=== PATIENT | male | born 1970 | race African-American/Black ===

== ENCOUNTER 2017-09-18 15:29 | Emergency (ER) | payer MEDICARE, MEDICAID ==
--- NOTE | 2017-09-18 16:44 | ER Document Report ---
ED Medical Screen (RME) - General Chief Complaint: Eye Problem Stated Complaint: EYE PRESSURE Time Seen by Provider: 09/18/17 16:39 Notes: 47-year-old male past medical history end-stage renal disease with complaints of right eye abnormal vision since yesterday. He states that yesterday evening , he started to get some floaters in his eye which then resolved right before his nap. When he woke up yesterday at 10 PM from his nap, his vision was severely blurred and he had eye pressure in and behind the right eye. When asked if he has ever had a glaucoma attack, he says no but then upon further questioning he states that he has had one prior episode which required pillows to decrease elevated pressure in his eye. Today, he was sent over from dialysis for evaluation. He does tell me that he recently ran out of his Travatan glaucoma drops for approximately 2 weeks but then was able to obtain a refill and start taking it again. EXAM Mid dilated right pupil Do not appreciate a hazy cornea TRAVEL OUTSIDE OF THE [place] IN LAST 30 DAYS: No - Related Data Allergies/Adverse Reactions: BLOOD THINNERS Allergy (Uncoded 09/18/17 15:30) Home Medications: Current Home Medications Amlodipine Besylate 10 mg PO DAILY 09/18/17 [History] Carvedilol 25 mg PO DAILY 09/18/17 [History] Furosemide [Lasix] 40 mg PO DAILY 09/18/17 [History] Hydrochlorothiazide 12.5 mg PO DAILY 09/18/17 [History] Insulin Detemir [Levemir] 100 unit SQ DAILY 09/18/17 [History] Levothyroxine Sodium 50 mcg PO DAILY 09/18/17 [History] Pravastatin Sodium 10 mg PO DAILY 09/18/17 [History] Travoprost (Benzalkonium) [Travatan 0.004% Eye Drop] 5 ml OP DAILY 09/18/17 [ History] Past Medical History - Social History Chew tobacco use (# tins/day): No Frequency of alcohol use: Occasional Drug Abuse: None - Past Medical History Cardiac Medical History: Reports: Hx Hypercholesterolemia, Hx Hypertension Endocrine Medical History: Reports: Hx Diabetes Mellitus Type 2 Renal/ Medical History: Reports: Hx End Stage Renal Disease. Denies: Hx Peritoneal Dialysis Past Surgical History: Reports: Hx Orthopedic Surgery - fifth digit toe amputation to right foot Physical Exam - Vital signs Vitals: Temp Pulse Resp BP Pulse Ox 98.6 F 64 20 146/81 H 100 09/18/17 15:47 09/18/17 15:47 09/18/17 15:47 09/18/17 15:47 09/18/17 15:47 Course - Vital Signs Vital signs: Temp Pulse Resp BP Pulse Ox 98.6 F 64 20 146/81 H 100 09/18/17 15:47 09/18/17 15:47 09/18/17 15:47 09/18/17 15:47 09/18/17 15:47
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
[2017-09-18] MEDS ORDERED: ACETAMINOPHEN 325 MG TABLET ONE (18:55)
[2017-09-18 18:57] VITALS: BP 165/76
== END 2017-09-18 18:57 | disposition home or self-care (01) ==
LOC: ER 15:29
DX: H54.61 Unqualified visual loss, right eye, normal vision left eye (principal); H57.11 Ocular pain, right eye; Z79.899 Other long term (current) drug therapy
CPT/HCPCS: 99283

== ENCOUNTER 2019-10-29 15:12 | Emergency (ER) | payer MEDICARE, BC ==
--- NOTE | 2019-10-29 15:36 | ER Document Report ---
ED Medical Screen (RME) - General Chief Complaint: Dialysis Catheter Problem Stated Complaint: LEFT ARM PAIN Time Seen by Provider: 10/29/19 15:31 Primary Care Provider: AMANDA RIVERA MD [Primary Care Provider] - Follow up as needed TRAVEL OUTSIDE OF THE [place] IN LAST 30 DAYS: No - HPI Notes: 10/29/19 15:34 Patient is a 49-year-old male with history of end-stage renal disease and on dialysis every Thursday/Thursday/Thursday (performed complete session with dialysis yesterday) presents complaining of continued bleeding from his fistula site of his right arm. They have not been able to stop the bleeding. He is not on any blood thinners. He is not having any chest pain or shortness of breath. No fever. I have treated and performed a rapid initial assessment of this patient. A comprehensive ED assessment and evaluation of the patient, analysis of test results and completion of medical decision making process will be conducted by additional ED providers. PHYSICAL EXAMINATION: GENERAL: Well-appearing, well-nourished and in no acute distress. A&Ox4. Answers questions appropriately. Right arm: Palpable thrill and bruit noted. There is noted active bleeding from where the needle was withdrawn yesterday. Dressing was replaced in triage. - Related Data Allergies/Adverse Reactions: BLOOD THINNERS Allergy (Uncoded 09/18/17 15:30) Past Medical History - Past Medical History Cardiac Medical History: Reports: Hx Hypercholesterolemia, Hx Hypertension Endocrine Medical History: Reports: Hx Diabetes Mellitus Type 2 Renal/ Medical History: Reports: Hx End Stage Renal Disease. Denies: Hx Peritoneal Dialysis Past Surgical History: Reports: Hx Orthopedic Surgery - fifth digit toe amputation to right foot Doctor's Discharge - Discharge Referrals: AMANDA RIVERA MD [Primary Care Provider] - Follow up as needed
[2019-10-29 16:16] LABS: PROTHROMBIN TIME 16.3 SEC (11.4-15.4)
[2019-10-29 16:17] LABS: PARTIAL THROMBOPLASTIN TIME 35.7 SEC (23.5-35.8)
[2019-10-29 16:28] LABS: ALBUMIN 4.6 g/dL (3.5-5.0); ALKALINE PHOSPHATASE 157 U/L (38-126); ANION GAP 13 (5-19); ASPARTATE AMINO TRANSFERASE 21 U/L (17-59); BILIRUBIN,DIRECT 0.9 mg/dL (0.0-0.4); BILIRUBIN,TOTAL 1.1 mg/dL (0.2-1.3); BLOOD UREA NITROGEN 39 mg/dL (7-20); CALCIUM 9.7 mg/dL (8.4-10.2); CARBON DIOXIDE 31 mmol/L (22-30); CHLORIDE 101 mmol/L (98-107); GLUCOSE 106 mg/dL (75-110); POTASSIUM 4.2 mmol/L (3.6-5.0); TOTAL PROTEIN 8.6 g/dL (6.3-8.2)
[2019-10-29 16:29] LABS: ABSOLUTE BASOPHILS # (AUTO) 0.1 10^3/uL (0.0-0.2); ABSOLUTE EOSINOPHILS # (AUTO) 0.2 10^3/uL (0.0-0.6); ABSOLUTE LYMPHOCYTES (AUTO) 0.7 10^3/uL (0.5-4.7); ABSOLUTE MONOCYTES (AUTO) 0.7 10^3/uL (0.1-1.4); BASOPHILS % (AUTO) 1.4 % (0-2); EOSINOPHILS % (AUTO) 4.1 % (0-6); HEMATOCRIT 32.8 % (37.9-51.0); HEMOGLOBIN 10.6 g/dL (13.5-17.0); LYMPHOCYTES % (AUTO) 15.2 % (13-45); MEAN CORPUSCULAR HGB CONC 32.2 g/dL (32.0-36.0); MEAN CORPUSCULAR VOLUME 90 fl (80-97); MONOCYTES % (AUTO) 14.1 % (3-13); RED BLOOD COUNT 3.65 10^6/uL (4.35-5.55); RED CELL DISTRIBUTION WIDTH 19.3 % (11.5-14.0); SEGMENTED NEUTROPHILS % (AUTO) 65.2 % (42-78); TOTAL CELLS COUNTED % (AUTO) 100 %; WHITE BLOOD COUNT 4.6 10^3/uL (4.0-10.5)
[2019-10-29 16:51] LABS: PLATELET COUNT 85 10^3/uL (150-450)
[2019-10-29] MEDS ORDERED: TRANEXAMIC ACID INJ/PF 1,000 MG/10 ML SDV TOP ONE (18:16)
--- NOTE | 2019-10-29 18:56 | ER Document Report ---
ED General - General Chief Complaint: Dialysis Catheter Problem Stated Complaint: LEFT ARM PAIN Time Seen by Provider: 10/29/19 15:31 Primary Care Provider: AMANDA RIVERA MD [ACTIVE STAFF] - Follow up as needed Notes: 49-year-old male presents emergency department complaining that has been bleeding from his dialysis fistula in his right arm since leaving dialysis yesterday. States that he wrapped it up overnight and thought that the dressing would be enough pressure but when he woke up this morning his shirt was bloody. Called dialysis and was told there was nothing they could do so he came to the emergency department. Denies taking any blood thinners. Denies any wooziness or lightheadedness. TRAVEL OUTSIDE OF THE [place] IN LAST 30 DAYS: No - Related Data Allergies/Adverse Reactions: BLOOD THINNERS Allergy (Uncoded 09/18/17 15:30) Past Medical History - General Information source: Patient, Relative - Social History Smoking Status: Current Every Day Smoker Chew tobacco use (# tins/day): No Frequency of alcohol use: None Drug Abuse: None Family History: Reviewed & Not Pertinent Patient has suicidal ideation: No Patient has homicidal ideation: No - Past Medical History Cardiac Medical History: Reports: Hx Hypercholesterolemia, Hx Hypertension Endocrine Medical History: Reports: Hx Diabetes Mellitus Type 2 Renal/ Medical History: Reports: Hx End Stage Renal Disease. Denies: Hx Peritoneal Dialysis Past Surgical History: Reports: Hx Orthopedic Surgery - fifth digit toe amputation to right foot Review of Systems - Review of Systems Constitutional: No symptoms reported Cardiovascular: No symptoms reported Respiratory: No symptoms reported Gastrointestinal: No symptoms reported Skin: See HPI - Bleeding dialysis fistula Hematologic/Lymphatic: See HPI - Bleeding dialysis fistula Physical Exam - Vital signs Vitals: Temp Pulse Resp BP Pulse Ox 98.1 F 61 16 172/78 H 95 10/29/19 15:36 10/29/19 15:36 10/29/19 15:36 10/29/19 15:36 10/29/19 15:36 Interpretation: Hypertensive - Notes Notes: GENERAL: Alert, interacts well. No acute distress. HEAD: Normocephalic, atraumatic EYES: Pupils equal, round and reactive to light, extraocular movements intact. ENT: Oral mucosa moist, tongue midline. NECK: Full range of motion, supple, trachea midline. EXTREMITIES: Moves all 4 extremities spontaneously, right upper extremity has a very slow trickle of blood coming from a puncture wound in the dialysis fistula, strong thrill, no aneurysm noted, bleeding is not brisk. No cyanosis. NEUROLOGICAL: Alert and oriented x3, normal speech. . PSYCH: Normal mood, normal affect. SKIN: Warm, Dry. Course - Re-evaluation Re-evalutation: 10/29/19 21:31 CBC shows chronic anemia and chronically low platelets, INR chronically prolonged, chemistries reveal chronic renal failure, nothing actionable. Direct pressure was held with TXA soaked gauze, direct pressure was continued and after approximately an hour of direct pressure with TXA soaked gauze the bleeding stopped. He was observed for another 30 minutes, no further bleeding despite using that arm with full range of motion. Patient will be discharged to home. - Vital Signs Vital signs: Temp Pulse Resp BP Pulse Ox 98.1 F 61 16 172/78 H 95 10/29/19 15:36 10/29/19 15:36 10/29/19 15:36 10/29/19 15:36 10/29/19 15:36 - Laboratory Result Diagrams: 10/29/19 15:55 10/29/19 15:55 Laboratory results interpreted by me: 10/29/19 10/29/19 10/29/19 15:55 15:55 15:55 RBC 3.65 L Hgb 10.6 L Hct 32.8 L RDW 19.3 H Plt Count 85 L Mellette % (Auto) 14.1 H PT 16.3 H Carbon Dioxide 31 H BUN 39 H Creatinine 7.02 H Est GFR ( Amer) 10 L Est GFR (MDRD) Non-Af 8 L Direct Bilirubin 0.9 H Alkaline Phosphatase 157 H Total Protein 8.6 H Discharge - Discharge Clinical Impression: Bleeding dialysis fistula Condition: Stable Disposition: HOME, SELF-CARE Additional Instructions: If you start bleeding again please hold pressure as hard as you can for 30 minutes, when you let go if it continues to bleed please return to the emergency department. If the bleeding is more than just a slow trickle like it was this evening please hold pressure and immediately call 911 instead of waiting 30 minutes. Referrals: AMANDA RIVERA MD [ACTIVE STAFF] - Follow up as needed
[2019-10-29 21:47] VITALS: BP 172/70
== END 2019-10-29 21:30 | disposition home or self-care (01) ==
LOC: ER 15:12
DX: T82.838A Hemorrhage due to vascular prosthetic devices, implants and grafts, initial encounter (principal); Y84.1 Kidney dialysis as the cause of abnormal reaction of the patient, or of later complication, without mention of misadventure at the time of the procedure; I12.0 Hypertensive chronic kidney disease with stage 5 chronic kidney disease or end stage renal disease; E11.22 Type 2 diabetes mellitus with diabetic chronic kidney disease; N18.6 End stage renal disease; D63.1 Anemia in chronic kidney disease; Z99.2 Dependence on renal dialysis; F17.200 Nicotine dependence, unspecified, uncomplicated; Z88.8 Allergy status to other drugs, medicaments and biological substances
CPT/HCPCS: 99284; 36415; 85025; 85610; 85730; 80053; J3490

== ENCOUNTER 2020-08-20 14:28 | Inpatient (IN) | payer MEDICARE, BC ==
[2020-08-20 15:10] LABS: HEMATOCRIT 34.2 % (37.9-51.0); HEMOGLOBIN 11.2 g/dL (13.5-17.0); MEAN CORPUSCULAR HEMOGLOBIN 29.1 pg (27.0-33.4); MEAN CORPUSCULAR HGB CONC 32.7 g/dL (32.0-36.0); MEAN CORPUSCULAR VOLUME 89 fl (80-97); RED BLOOD COUNT 3.86 10^6/uL (4.35-5.55); RED CELL DISTRIBUTION WIDTH 14.9 % (11.5-14.0); WHITE BLOOD COUNT 4.9 10^3/uL (4.0-10.5)
[2020-08-20 15:35] LABS: ABSOLUTE LYMPHOCYTES# (MANUAL) 0.4 10^3/uL (0.5-4.7); BAND NEUTROPHILS % (MANUAL) 10 % (3-5); BASOPHILS % (MANUAL) 0 % (0-2); EOSINOPHILS % (MANUAL) 0 % (0-6); LYMPHOCYTES % (MANUAL) 9 % (13-45); METAMYELOCYTES % (MANUAL) 1 % (0-1); MONOCYTES % (MANUAL) 1 % (3-13); SEGMENTED NEUTROPHILS % (MAN) 79 % (42-78); TOTAL CELLS COUNTED 100; VENOUS BLOOD BASE EXCESS -8.3 mmol/L; VENOUS BLOOD HCO3 18.2 mmol/L (20-32); VENOUS BLOOD PCO2 41.1 mmHg (35-63); VENOUS BLOOD PH 7.26 (7.30-7.42)
[2020-08-20 15:36] LABS: PLATELET COMMENT DECREASED; RBC MORPHOLOGY COMMENT NORMO-CYTIC/CHROMIC
[2020-08-20 15:37] LABS: PLATELET COUNT 54 10^3/uL (150-450)
[2020-08-20 15:39] LABS: ALBUMIN 3.5 g/dL (3.5-5.0); ALKALINE PHOSPHATASE 87 U/L (38-126); ASPARTATE AMINO TRANSFERASE 42 U/L (17-59); BILIRUBIN,DIRECT 0.9 mg/dL (0.0-0.4); BILIRUBIN,TOTAL 1.1 mg/dL (0.2-1.3); BLOOD UREA NITROGEN 67 mg/dL (7-20); CALCIUM 7.9 mg/dL (8.4-10.2); GLUCOSE 168 mg/dL (75-110); POTASSIUM 4.7 mmol/L (3.6-5.0); TOTAL PROTEIN 6.8 g/dL (6.3-8.2)
--- NOTE | 2020-08-20 15:51 | RADIOLOGY REPORT (SQ) ---
EXAM DESCRIPTION: CHEST SINGLE VIEW IMAGES COMPLETED DATE/TIME: 08/20/2020 3:38 pm REASON FOR STUDY: difficulty breathing COMPARISON: None. EXAM PARAMETERS: NUMBER OF VIEWS: One view. TECHNIQUE: An AP view of the chest was obtained. RADIATION DOSE: NA LIMITATIONS: None. FINDINGS: LUNGS AND PLEURA: Bilateral patchy consolidative opacities in a peripheral distribution. The right lateral costophrenic sulcus is blunted. There is no pneumothorax. MEDIASTINUM AND HILAR STRUCTURES: No mediastinal or hilar contour abnormality. HEART AND VASCULAR STRUCTURES: Cardiac silhouette is enlarged. BONES: No acute findings. HARDWARE: Endovascular stents that project over the right clavicle. OTHER: No other finding. IMPRESSION: Patchy bilateral consolidative opacities in a peribronchial distribution. Differential considerations include pulmonary edema and multifocal pneumonia (including atypical infections such a s COVID-19). TECHNICAL DOCUMENTATION: JOB ID: [id number] 2010 [employer]- All Rights Reserved Reading location - IP/workstation name: [email or web address]
[2020-08-20 16:09] LABS: ANION GAP 20 (5-19); CARBON DIOXIDE 20 mmol/L (22-30); CHLORIDE 97 mmol/L (98-107)
[2020-08-20] MEDS ORDERED: AZITHROMYCIN INJ 500 MG VIAL IV ONE (16:19)
[2020-08-20] MEDS ORDERED: DEXAMETHASONE SOD PHOS INJ 10 MG/1 ML VIAL IV ONE (16:19)
[2020-08-20] MEDS ORDERED: FAMOTIDINE INJ/PF 20 MG/2 ML SDV IV ONE (16:19)
[2020-08-20] MEDS ORDERED: FUROSEMIDE INJ/PF 20 MG/2 ML SDV IV ONE (16:20)
--- NOTE | 2020-08-20 16:21 | ER Document Report ---
ED Respiratory Problem - General Chief Complaint: Breathing Difficulty Stated Complaint: DIFFICULTY BREATHING Time Seen by Provider: 08/20/20 16:16 Mode of Arrival: Medic Information source: Patient, Emergency Med Personnel Notes: 08/20/20 16:10 - ED Nursing Note by TIMMYNUNORAMIREZ Num: [id number] : 1970 Patient Age: 49 pt reposition self numerous times. pt taken off nrb and placed on o2 at 4 liters. o2 sat dropped to 87. pt placed back on nrb. Initialized on 08/20/20 16:10 - END OF NOTE MY NOTES 49-year-old male arrives with chief complaint of having shortness of breath with 67% sats on room air at home and then this increased to 95% per EMS by time of arrival. Patient was tested positive for COVID-19 around 6 days ago this is according to his and EMS. I spoke with Dr. Babb at 1705 and he advises calling Dr. Hernandez and this was done by 1717. She returned call by 1728 and advises check for dialysis potential. Nursing staff advises she is spoken with and he has positive dialysis patient. Patient is a insulin-dependent diabetic on Lasix levothyroxine Pollock Marissa Norvasc pravastatin. Also patient is a dialysis patient and is scheduled for tomorrow. Dr. Chery was called and he advises putting the patient in hospital and he will dialyze him tomorrow.Also Yumi advised HFNC TRAVEL OUTSIDE OF THE [place] IN LAST 30 DAYS: No - Related Data Allergies/Adverse Reactions: BLOOD THINNERS Allergy (Uncoded 08/20/20 14:47) Home Medications: sildenafil. amlodipine. carvedilol. hydralazine. dorzolamide Past Medical History - General Information source: Patient, Emergency Med Personnel - Social History Smoking Status: Former Smoker Cigarette use (# per day): No Chew tobacco use (# tins/day): No Smoking Education Provided: No Frequency of alcohol use: None Drug Abuse: None Lives with: Family Family History: Reviewed & Not Pertinent Patient has suicidal ideation: No Patient has homicidal ideation: No - Past Medical History Cardiac Medical History: Reports: Hx Hypercholesterolemia, Hx Hypertension Endocrine Medical History: Reports: Hx Diabetes Mellitus Type 2 Renal/ Medical History: Reports: Hx End Stage Renal Disease. Denies: Hx Peritoneal Dialysis Past Surgical History: Reports: Hx Orthopedic Surgery - fifth digit toe amputation to right foot Review of Systems - Review of Systems Constitutional: See HPI, Fever, Weakness, Recent illness EENT: Nose congestion, Throat pain Cardiovascular: See HPI, Orthopnea, Dyspnea, Lightheaded Respiratory: See HPI, Cough, Hurts to breathe, Short of breath Gastrointestinal: No symptoms reported Genitourinary: No symptoms reported Male Genitourinary: No symptoms reported Musculoskeletal: See HPI, Leg swelling Skin: No symptoms reported Hematologic/Lymphatic: No symptoms reported Neurological/Psychological: No symptoms reported -: Yes All other systems reviewed and negative Physical Exam - Vital signs Vitals: Temp 99.1 F 08/20/20 14:28 Interpretation: Hypoxic, Tachypneic - General General appearance: Anxious - HEENT Head: Normocephalic, Atraumatic Eyes: Normal Cornea: Other - Left is pale and appears to be blind Extraocular movements intact: Yes Pupils: PERRL Corrective lenses worn: No Sinus: Normal Nasal: Normal Mucous membranes: Dry Pharynx: Erythema Neck: Normal - Respiratory Respiratory status: Respiratory distress Chest status: Tender Breath sounds: Rales Chest palpation: Normal - Cardiovascular Rhythm: Regular Heart sounds: Normal auscultation Murmur: No - Abdominal Inspection: Morbidly Obese Distension: No distension Bowel sounds: Normal Tenderness: Nontender Organomegaly: No organomegaly - Rectal Prostate: Other - Deferred - Genitourinary Scrotum: Other - Deferred - Back Back: Normal - Extremities General upper extremity: Normal inspection General lower extremity: Edema - Neurological Neuro grossly intact: Yes Cognition: Normal Orientation: AAOx4 Crosby Coma Scale Eye Opening: Spontaneous Mariah Coma Scale Verbal: Oriented Mariah Coma Scale Motor: Obeys Commands Crosby Coma Scale Total: 15 Speech: Normal Motor strength normal: LUE, RUE, LLE, RLE Sensory: Normal - Psychological Associated symptoms: Anxious - Skin Skin Temperature: Warm Skin Moisture: Moist Course - Vital Signs Vital signs: Temp Pulse Resp BP Pulse Ox 99.1 F 34 H 107/60 96 08/20/20 14:28 08/20/20 16:07 08/20/20 16:07 08/20/20 16:07 - Laboratory Results Result Diagrams: 08/20/20 14:34 12/14/20 14:34 Laboratory Results Interpreted: 08/20/20 08/20/20 08/20/20 14:34 14:34 14:34 RBC 3.86 L Hgb 11.2 L Hct 34.2 L RDW 14.9 H Plt Count 54 L Seg Neuts % (Manual) 79 H Band Neutrophils % 10 H Lymphocytes % (Manual) 9 L Monocytes % (Manual) 1 L Abs Lymphs (Manual) 0.4 L Abs Monocytes (Manual) 0.0 L VBG pH 7.26 L VBG HCO3 18.2 L Sodium 136.9 L Chloride 97 L Carbon Dioxide 20 L Anion Gap 20 H BUN 67 H Creatinine 14.08 H Est GFR ( Amer) 5 L Est GFR (MDRD) Non-Af 4 L Glucose 168 H Lactic Acid Calcium 7.9 L Direct Bilirubin 0.9 H 08/20/20 14:34 RBC Hgb Hct RDW Plt Count Seg Neuts % (Manual) Band Neutrophils % Lymphocytes % (Manual) Monocytes % (Manual) Abs Lymphs (Manual) Abs Monocytes (Manual) VBG pH VBG HCO3 Sodium Chloride Carbon Dioxide Anion Gap BUN Creatinine Est GFR ( Amer) Est GFR (MDRD) Non-Af Glucose Lactic Acid 2.8 H Calcium Direct Bilirubin Critical Laboratory Results Reviewed: Yes Attending or Supervising Physician who Reviewed Labs: ROSELIA SANTA JR - Radiology Results Radiology Results Interpreted: 08/20/20 17:43 Dr. Pederson radiologist Critical Radiology Results Reviewed: Yes Attending or Supervising Physician who Reviewed Radiology: ROSELIA SANTA JR - EKG Interpretation by Ut EKG shows normal: Sinus rhythm Rate: Normal Rhythm: NSR - With sinus rhythm with JEFERSON consider biatrial abnormalities and left posterior fascicular block and borderline prolonged QT interval. Also repo larization abnormal and suggest ischemia inferior leads. This was read by myself as well as agreement with the EKG machine itself. No STEMI Discharge - Discharge Clinical Impression: COVID-19 virus detected, ESRD (end stage renal disease) on dialysis Pneumonia Qualifiers: Pneumonia type: due to unspecified organism Laterality: bilateral Lung location: unspecified part of lung Qualified Code(s): J18.9 - Pneumonia, unspecified organism Condition: Stable Disposition: ADMITTED INPATIENT Admitting Provider: David (Hospitalist) Unit Admitted: IMCU [facility]: [facility] will need [facility]; will attempt HF NC because of patient's noncompliance with facemask.
[2020-08-20] MEDS ORDERED: EPINEPHRINE INJ 1 MG/10 ML DISP.SYRIN ONE (17:18)
[2020-08-20] MEDS ORDERED: SODIUM BICARBONATE 8.4% INJ 50 MEQ/50 ML DISP.SYRIN ONE (17:18)
[2020-08-20] MEDS ORDERED: ATROPINE SULFATE INJ 1 MG/10 ML DISP.SYRIN IV ONE (17:18)
[2020-08-20] MEDS ORDERED: IPRATROPIUM/ALBUTEROL 0.5-2.5 MG/3 ML AMPUL NEB PRN (18:08)
[2020-08-20] MEDS ORDERED: ONDANSETRON HCL INJ/PF 4 MG/2 ML SDV IV PRN (18:12)
[2020-08-20] MEDS ORDERED: ACETAMINOPHEN 325 MG TABLET PO PRN (18:12)
[2020-08-20] MEDS ORDERED: NORMAL SALINE 250 ML IV PRN (18:15)
[2020-08-20 18:23] VITALS: BP 165/90
[2020-08-20] MEDS ORDERED: FUROSEMIDE INJ/PF 40 MG/4 ML SDV IV ONE (18:23)
[2020-08-20] MEDS ORDERED: DEXTROSE 50%-WATER 25 GM/50 ML DISP.SYRIN IV ONE (18:40)
[2020-08-20] MEDS ORDERED: INSULIN REG, HUMAN 100 UNIT/ML 3 ML VIAL (PYX) ONE (18:42)
--- NOTE | 2020-08-20 19:31 | Progress Note ---
Provider Note Provider Note: I was advised of CODE STATUS at approximately 183 by Noreen LU who went to find the patient had defecated on himself and was nonresponsive with decreased respirations decreased heart rate and was just ready to go upstairs according to Noreen. Dr. Hernandez was standing out of the room as multiple nursing staff juan t to the room and myself under secure PPE COVID-19 precautions. We use the same precautions leaving the room after code was finished. CPR was begun at 183 with pads applied and patient received multiple doses of epinephrine atropine 1 mg an amp of D50 and 5 units of insulin IV and he was charged for 360 J but the machine advised against any charge because he had a rhythm in PEA. No pulses were detected at any time on this patient's evaluation. Code was called at 185. I did speak at telephone #[phone] with Patti Delgadillo his at 1914 and I advised her of her 's . She took this rather poorly with large amounts of crying and disbelief that I heard over the phone. She asked to see her and staff were advised out front and Noreen was advised of this as well. She has been the nurse taking care of this patient all afternoon.
[2020-08-20] MEDS ORDERED: IVERMECTIN 3 MG TABLET PO ONE (20:00)
--- NOTE | 2020-08-20 21:59 | PDOC H&P ---
History of Present Illness Admission Date/PCP: 08/20/20 18:07 Patient complains of: Shortness of breath History of Present Illness: KHLOE CARDOSO is a 49 year old male, past medical history of ESRD on dialysis, hypertension, hyperlipidemia, diabetes who came in the ED today due to shortness of breath. History is limited because the patient is very short of breath. Stated that he tested positive for Covid 2 weeks prior when he started experiencing on and off fever, mild shortness of breath, cough. He continued to go to his dialysis appointment and was successfully dialyzed last Thursday. Today he became more short of breath and and EMS was called who noted saturation 67%. In the ED blood pressure was 100/56 heart rate of 72, respiratory rate of 40, O2 sat 89% on 15 L nonrebreather. Chest x-ray findings consistent with Covid pneumonia. He became confused and was not able to tolerate the BiPAP. He was given 1 dose of azithromycin. Hospitalist service was called for admission and management. I saw him at around 6:00 PM and he was very tachypneic. I tried to put him back on the BiPAP but he was unable to tolerate this. I advised ED physician to try a high flow nasal cannula. At around 6:35 PM he developed severe bradycardia eventually going into cardiac arrest. Dr. Albarado conducted ACLS however he did not survive and was pronounced . Dr. Albarado was kind enough to call his Patti to inform her of his passing. Past Medical History Cardiac Medical History: Reports: Coronary Artery Disease, Hyperlipidema, Hypertension EENT Medical History: Reports: None Neurological Medical History: Reports: None Endocrine Medical History: Reports: Diabetes Mellitus Type 2 Renal/ Medical History: Reports: End Stage Renal Disease - On dialysis Psychiatric Medical History: Reports: None Traumatic Medical History: Reports: None Hematology: Reports: Anemia Past Surgical History Past Surgical History: Reports: Orthopedic Surgery - fifth digit toe amputation to right foot Social History Lives with: Family Smoking Status: Former Smoker Electronic Cigarette use?: No - Advance Directive Resuscitation Status: Full Code Family History Family History: Reviewed & Not Pertinent Parental Family History Reviewed: Yes Children Family History Reviewed: Yes Sibling(s) Family History Reviewed.: Yes Medication/Allergy Home Medications: Amlodipine Besylate 10 mg PO QHS 09/18/17 Carvedilol 25 mg PO Q12 09/18/17 Insulin Detemir [Levemir] 100 unit SQ DAILYP PRN 09/18/17 Levothyroxine Sodium 50 mcg PO Q6AM 09/18/17 Dorzolamide HCl/Pf [Dorzolamide 2% Eye Drop] 1 drop OD Q8 08/20/20 Hydralazine HCl [Apresoline 50 mg Tablet] 50 mg PO Q8 08/20/20 Latanoprost [Xalatan 0.005% Oph Soln 2.5 ml] 1 drop OD QHS 08/20/20 Peg 400/Hypromellose/Glycerin [Dry Eye Relief Eye Drops] 1 drop OD QID 08/20/20 Sildenafil Citrate 50 mg PO DAILYP PRN 08/20/20 Sodium Polystyrene Sulfonate [Kayexalate 15 gm/60 ml Susp 60 ml] 60 ml PO SA@1000 08/20/20 Allergies/Adverse Reactions: BLOOD THINNERS Allergy (Uncoded 08/20/20 14:47) Physical Exam Vital Signs: Temp Pulse Resp BP Pulse Ox 99.1 F 30 H 165/90 H 98 08/20/20 14:28 08/20/20 18:04 08/20/20 18:04 08/20/20 18:04 Intake & Output 08/19/20 08/20/20 08/21/20 06:59 06:59 06:59 Weight 102.1 kg General appearance: PRESENT: severe distress Eye exam: PRESENT: EOMI, PERRLA Mouth exam: PRESENT: moist Neck exam: PRESENT: full ROM Respiratory exam: PRESENT: crackles, rales, symmetrical, other - Labored breathing with respiratory rate of 40 Cardiovascular exam: PRESENT: tachycardia Pulses: PRESENT: +2 pedal pulses bilateral GI/Abdominal exam: PRESENT: normal bowel sounds, soft. ABSENT: tenderness Extremities exam: PRESENT: full ROM Musculoskeletal exam: PRESENT: full ROM Neurological exam: PRESENT: alert, awake, oriented to person, oriented to place Psychiatric exam: PRESENT: normal mood Skin exam: PRESENT: normal color Results Laboratory Results: 08/20/20 14:34 08/20/20 14:34 08/20/20 08/20/20 08/20/20 14:34 14:34 14:34 WBC 4.9 RBC 3.86 L Hgb 11.2 L Hct 34.2 L MCV 89 MCH 29.1 MCHC 32.7 RDW 14.9 H Plt Count 54 L Seg Neutrophils % Not Reportable VBG pH 7.26 L VBG pCO2 41.1 VBG HCO3 18.2 L VBG Base Excess -8.3 Sodium 136.9 L Potassium 4.7 Chloride 97 L Carbon Dioxide 20 L Anion Gap 20 H BUN 67 H Creatinine 14.08 H Est GFR ( Amer) 5 L Glucose 168 H Lactic Acid Calcium 7.9 L Total Bilirubin 1.1 AST 42 Alkaline Phosphatase 87 Total Protein 6.8 Albumin 3.5 08/20/20 14:34 WBC RBC Hgb Hct MCV MCH MCHC RDW Plt Count Seg Neutrophils % VBG pH VBG pCO2 VBG HCO3 VBG Base Excess Sodium Potassium Chloride Carbon Dioxide Anion Gap BUN Creatinine Est GFR ( Amer) Glucose Lactic Acid 2.8 H Calcium Total Bilirubin AST Alkaline Phosphatase Total Protein Albumin Impressions: Chest X-Ray 08/20/20 14:52 IMPRESSION: Patchy bilateral consolidative opacities in a peribronchial distribution. Differential considerations include pulmonary edema and multifocal pneumonia (including atypical infections such as COVID-19). Assessment and Plan - Diagnosis (1) Acute hypoxemic respiratory failure Is this a current diagnosis for this admission?: Yes (2) Pneumonia due to COVID-19 virus Is this a current diagnosis for this admission?: Yes (3) HTN (hypertension) Is this a current diagnosis for this admission?: Yes (4) Diabetes Qualifiers: Diabetes mellitus type: type 2 Diabetes mellitus complication status: with kidney complications Diabetes mellitus complication detail: with nephropathy Is this a current diagnosis for this admission?: Yes (5) ESRD (end stage renal disease) on dialysis Is this a current diagnosis for this admission?: Yes - Plan Summary Summary: I was able to see him and do a limited history physical exam. I was able to put in some orders to admit him however he went into cardiac arrest at 6:30 PM and he eventually . Dr. Albarado around the CODE BLUE and pronounced the patient. He also kindly called the Patti to inform her of his passing. - Time Time Spent with patient: 35 or more minutes Medications reviewed and adjusted accordingly: Yes Anticipated Discharge Disposition: tbd Anticipated Discharge Timeframe: tbd - Inpatient Certification Based on my medical assessment, after consideration of the patient's comorbidities, presenting symptoms, or acuity I expect that the services needed warrant INPATIENT care.: Yes Medical Necessity: Risk of Complication if Not Cared For in Hospital
[2020-08-20] MEDS ORDERED: HEPARIN SOD (PORCINE) 5,000 UNIT/ML 1 ML VIAL SUBCUT SCH (22:00)
--- NOTE | 2020-08-20 22:02 | Death Summary ---
Summary Date : 08/20/20 Time of :: 18:51 Autopsy: No Resuscitation Status: Full Code - Final Diagnosis (1) Acute hypoxemic respiratory failure Is this a current diagnosis for this admission?: Yes (2) Pneumonia due to COVID-19 virus Is this a current diagnosis for this admission?: Yes (3) HTN (hypertension) Is this a current diagnosis for this admission?: Yes (4) Diabetes Is this a current diagnosis for this admission?: Yes (5) ESRD (end stage renal disease) on dialysis Is this a current diagnosis for this admission?: Yes Hospital Course:: Patient came in due to acute hypoxemic respiratory failure. I was able to do a limited history and physical exam and put in admission orders. He developed cardiac arrest at 1835 or he was able to go upstairs to the floors and Dr. Albarado ran the code blue and he was pronounced by 1850.
[2020-08-21] MEDS ORDERED: ASCORBIC ACID 500 MG TABLET PO SCH (10:00)
[2020-08-21] MEDS ORDERED: DEXAMETHASONE SOD PHOS INJ 10 MG/1 ML VIAL IV SCH (10:00)
[2020-08-21] MEDS ORDERED: ZINC SULFATE 220 MG CAPSULE PO SCH (10:00)
--- NOTE | 2020-08-21 14:19 | EKG REPORT ---
SEVERITY:- ABNORMAL ECG - SINUS RHYTHM JEFERSON, CONSIDER BIATRIAL ABNORMALITIES LEFT POSTERIOR FASCICULAR BLOCK REPOL ABNRM SUGGESTS ISCHEMIA, INFERIOR LEADS BORDERLINE PROLONGED QT INTERVAL : Confirmed by: Jeanette Karimi MD 21-Aug-2020 14:19:01
== END 2020-08-20 23:00 | disposition left against medical advice (07) | DRG 177 ==
LOC: ER 14:28 → EH 18:07
PROVIDERS: ADMIT Internal Medicine; ATTEND Internal Medicine
PROC: 5A09357 Assistance with Respiratory Ventilation, Less than 24 Consecutive Hours, Continuous Positive Airway Pressure (ICD-10-PCS; principal; 2020-08-20)
DX: U07.1 COVID-19 (principal); J12.89 Other viral pneumonia; J96.01 Acute respiratory failure with hypoxia; N18.6 End stage renal disease; I12.0 Hypertensive chronic kidney disease with stage 5 chronic kidney disease or end stage renal disease; E11.22 Type 2 diabetes mellitus with diabetic chronic kidney disease; I25.10 Atherosclerotic heart disease of native coronary artery without angina pectoris; E78.5 Hyperlipidemia, unspecified; D63.1 Anemia in chronic kidney disease; E11.21 Type 2 diabetes mellitus with diabetic nephropathy; Z89.421 Acquired absence of other right toe(s); Z87.891 Personal history of nicotine dependence; Z79.4 Long term (current) use of insulin; Z79.899 Other long term (current) drug therapy; Z88.8 Allergy status to other drugs, medicaments and biological substances; Z99.2 Dependence on renal dialysis
CPT/HCPCS: 36415; 71045; 80053; 82803; 83605; 85025; 85379; 87040; 87077; 87150; 87186; 92950; 93005; 93010; 96365; 96375; 99285; J0171; J0456; J0461; J1100; J1940; J3490; S0028